=== PATIENT | female | born 1945 | race Hispanic/Latino ===

== ENCOUNTER 2018-02-02 20:25 | Emergency (ER) | payer SELFPAY ==
[2018-02-02 20:29] VITALS: BMI 32.2
[2018-02-02] MEDS ORDERED: Albuterol-Ipratrop 3 mg / 0.5 (3 ml) UD IH STA ×2 (21:52→21:53)
--- NOTE | 2018-02-02 21:55 | ED PDOC ---
Arrival/HPI - General Historian: Patient, Family - History of Present Illness Time/Duration: < week Symptom Onset: Gradual Symptom Course: Unchanged, Worsening Activities at Onset: Rest <Lior Velazco - Last Filed: 02/03/18 04:10> <Hussain Salvador - Last Filed: 02/03/18 04:20> - General Chief Complaint: Lower Extremity Problem/Injury Time Seen by Provider: 02/02/18 20:32 - History of Present Illness Narrative History of Present Illness (Text): 02/02/18 21:52 Ms. Valdes is a 72 year old female with PMH of pulmonary fibrosis (unknown etiology), CKD, and hypothyroidism who presents to ED with worsening b/l leg swelling. She states that it has been going on for several years and she normally takes lasix for it. But the swelling has worsened over the past week. She has also had intermittent SOB with exertion worsening over the past week. Her family states that she moved here recently from [place]. She has a surgical history of thyroid surgery, lung surgery (family is not sure which type), and hysterectomy. She denies tobacco, alcohol, or drug use. She denies fever, chills , CP, nausea/vomiting/diarrhea, numbness/tingling in extremities or changes in sensation in the LE. (Lior Velazco) Past Medical History - Provider Review Nursing Documentation Reviewed: Yes - Travel History Have you recently traveled outside [place] w/in the past 3 mons?: Yes If Yes, travel location?: [place] - Cardiac Hx Cardiac Disorders: No - Pulmonary Hx Respiratory Disorders: Yes Other/Comment: PULMONARY FIBROSIS - Neurological Hx Neurological Disorder: No - HEENT Hx HEENT Disorder: No - Renal Hx Renal Disorder: Yes Other/Comment: RENAL INSUFFICIENCY - Endocrine/Metabolic Hx Endocrine Disorders: Yes Other/Comment: THYROID SURGERY - Hematological/Oncological Hx Blood Disorders: No - Integumentary Hx Dermatological Disorder: Yes Other/Comment: DRY SKIN - Musculoskeletal/Rheumatological Hx Musculoskeletal Disorders: Yes Hx Osteoporosis: Yes - Gastrointestinal Hx Gastrointestinal Disorders: Yes - Genitourinary/Gynecological Hx Genitourinary Disorders: No - Psychiatric Hx Psychophysiologic Disorder: No Hx Substance Use: No - Surgical History Hx Hysterectomy: Yes Other/Comment: LUNG, THYROID <Lior Velazco - Last Filed: 02/03/18 04:10> Family/Social History - Physician Review Nursing Documentation Reviewed: Yes Family/Social History: No Known Family HX Smoking Status: Never Smoked Hx Alcohol Use: No Hx Substance Use: No <Lior Velazco - Last Filed: 02/03/18 04:10> Allergies/Home Meds <Lior Velazco - Last Filed: 02/03/18 04:10> <Hussain Salvador - Last Filed: 02/03/18 04:20> Allergies/Adverse Reactions: Allergies No Known Allergies Allergy (Verified 02/02/18 20:51) Home Medications: Home Meds Medication Instructions Recorded Confirmed Atorvastatin [Lipitor] 20 mg PO DAILY 02/02/18 02/02/18 Calcitriol [Rocaltrol] 1 cap PO DAILY 02/02/18 02/02/18 Calcium Carbonate [Oscal] 500 mg PO DAILY 02/02/18 02/02/18 Folic Acid 0.5 mg PO DAILY 02/02/18 02/02/18 Furosemide 40 mg PO DAILY 02/02/18 02/02/18 Levothyroxine [Synthroid] 100 mcg PO DAILY 02/02/18 02/02/18 Omeprazole 20 mg PO PRN PRN 02/02/18 02/02/18 Valsartan [Diovan] 80 mg PO DAILY 02/02/18 02/02/18 amLODIPine [Norvasc] 10 mg PO DAILY 02/02/18 02/02/18 Review of Systems - Review of Systems Constitutional: absent: Weight Change, Fevers Eyes: absent: Vision Changes ENT: absent: Sore Throat, Rhinorrhea Respiratory: SOB. absent: Cough Cardiovascular: Edema, TITUS. absent: Chest Pain, Calf Pain Gastrointestinal: absent: Abdominal Pain, Diarrhea, Nausea, Vomiting Genitourinary Female: absent: Dysuria, Frequency Musculoskeletal: absent: Arthralgias, Back Pain Skin: absent: Rash, Pruritis Neurological: absent: Headache, Dizziness Endocrine: absent: Diaphoresis Psychiatric: absent: Anxiety, Depression <Lior Velazco - Last Filed: 02/03/18 04:10> - Physician Review All systems were reviewed & negative as marked: Yes <Hussain Salvador - Last Filed: 02/03/18 04:20> Physical Exam Vital Signs Reviewed: Yes Temperature: Afebrile Blood Pressure: Normal Pulse: Regular Respiratory Rate: Normal Appearance: Positive for: Non-Toxic, Comfortable Mental Status: Positive for: Alert and Oriented X 3 - Systems Exam Head: Present: Atraumatic, Normocephalic Pupils: Present: PERRL Extroacular Muscles: Present: EOMI Ears: Present: Normal Mouth: Present: Moist Mucous Membranes Pharnyx: Present: Normal. No: ERYTHEMA, EXUDATE Neck: Present: Normal Range of Motion, JVD Respiratory/Chest: Present: Wheezes (end expiratory wheezes b/l), Rhonchi ( loudest at bases) Cardiovascular: Present: Regular Rate and Rhythm, Normal S1, S2. No: Murmurs, Rub, Gallop Abdomen: No: Tenderness, Rebound, Guarding Upper Extremity: Present: Normal Inspection. No: Cyanosis, Edema Lower Extremity: Present: Edema (2+ to knees b/l), NORMAL PULSES, Normal ROM Skin: Present: Warm, Dry Psychiatric: Present: Alert, Oriented x 3 <Lior Velazco - Last Filed: 02/03/18 04:10> Vital Signs Temp Pulse Resp BP Pulse Ox 02/03/18 04:16 98.3 F 87 17 126/77 95 02/03/18 02:05 98.0 F 74 18 127/80 96 02/02/18 23:50 98.4 F 89 18 127/83 97 02/02/18 20:59 98.1 F 90 18 135/83 98 02/02/18 20:36 98 F 99 H 20 124/82 96 Medical Decision Making - Lab Interpretations I have reviewed the lab results: Yes Interpretation: Abnormal lab values (mild elevated D-dimer) - RAD Interpretation [employer]: ED Physician, Radiologist - EKG Interpretation Interpreted by ED Physician: Yes Type: 12 lead EKG Comparison: No previous EKG avail. <Lior Velazco - Last Filed: 02/03/18 04:10> <Hussain Salvador - Last Filed: 02/03/18 04:20> ED Course and Treatment: 02/03/18 03:23 -Patient re-examined, was sleeping -Patient reports her symptoms have improved -Wheezing has improved -Patient states she would rather go home at this point (Lior Velazco) Patient Seen With Resident: In agreement with resident note which contains more details about the patient. Patient was seen and evaluated with resident. Came up with plan and treatment together. 72 year old female presents complaining of bilateral leg swelling that has been going on for several years, but worsen over the past week. Patient also reports intermitted shortness of breath for the past week. Plan: -- EKG -- Labs -- Chest X-ray -- Douneb, Solu-Medrol -- Lung Perf & Vent Scan -- Urinalysis (Raswant,Hussain) - Lab Interpretations Lab Results: 02/02/18 22:40 02/02/18 22:40 Lab Results 02/02/18 23:45: D-Dimer, Quantitative 305 02/02/18 23:40: Urine Color Straw, Urine Appearance Clear, Urine pH 6.0, Ur Specific [place] <= 1.005, Urine Protein Negative, Urine Glucose (UA) Negative, Urine Ketones Negative, Urine Blood Trace-lysed H, Urine Nitrate Negative, Urine Bilirubin Negative, Urine Urobilinogen 0.2, Ur Leukocyte Esterase Negative , Urine RBC 0 - 2, Urine WBC 0 - 2, Ur Epithelial Cells 0 - 2 02/02/18 22:40: Sodium 142, Potassium 4.8, Chloride 106, Carbon Dioxide 26, Anion Gap 15, BUN 40 H, Creatinine 1.6 H, Est GFR ( Amer) 38, Est GFR ( Non-Af Amer) 32, Random Glucose 100, Calcium 9.2, Magnesium 2.2, Total Bilirubin 0.9, AST 34, ALT 41, Alkaline Phosphatase 85, Lactate Dehydrogenase 591, Total Creatine Kinase 116, Troponin I < 0.01, NT-Pro-B Natriuret Pep 277, Total Protein 7.6, Albumin 4.2, Globulin 3.4, Albumin/Globulin Ratio 1.2 02/02/18 22:40: PT 10.2, INR 0.90, APTT 30.0, D-Dimer, Quantitative Cancelled 02/02/18 22:40: WBC 4.7, RBC 4.19, Hgb 12.4, Hct 37.8, MCV 90.2, MCH 29.6, MCHC 32.8, RDW 13.3, Plt Count 175, MPV 9.8, Gran % 56.3, Lymph % (Auto) 29.3, [place] % (Auto) 8.6 H, Eos % (Auto) 5.4 H, Baso % (Auto) 0.4, Gran # 2.63, Lymph # ( Auto) 1.4, [place] # (Auto) 0.4, Eos # (Auto) 0.3, Baso # (Auto) 0.02 - RAD Interpretation Narrative RAD Interpretations (Text): 02/03/18 03:46 CXR without acute findings VQ Scan EXAM: NM Lung Perfusion and Ventilation Scan CLINICAL HISTORY: 72 years old, female; Abnormal findings; Abnormal diagnostic tests; Elevated d- dimer; Additional info: SOB elevated dimer TECHNIQUE: Nuclear Medicine ventilation and perfusion images of the lungs were obtained in multiple projections following radiopharmaceutical inhalation followed by injection of Tc99m MAA. COMPARISON: SD - CHEST PORTABLE 2018-02-02 22:13 FINDINGS: Ventilation: Unremarkable. No ventilation defects. Perfusion: Heterogeneous ventilation. There are matched areas of decreased tracer uptake on both perfusion and ventilation images. Heterogeneous perfusion. Other findings: Pharmaceutical: 33.3 mCi of technetium 99m DTPA 4.2 mCi of technetium 99m MAA were administered. Recent chest x-ray demonstrate moderate enlargement of cardiac silhouette. Central pulmonary congestion. There is elevation of right hemidiaphragm. IMPRESSION: Low probability for pulmonary embolus. (Lior Velazco) Radiology Orders: 02/02/18 21:52 CHEST PORTABLE [RAD] Stat DUPLEX LOWER EXTRM VEIN BILAT [US] Stat 02/03/18 00:16 LUNG PERF & VENT SCAN [NM] Stat - EKG Interpretation EKG Interpretation (Text): 02/03/18 04:10 Normal sinus rhythm, low voltage QRS (Lior Velazco) - Medication Orders Current Medication Orders: Discontinued Medications Albuterol/Ipratropium (Duoneb 3 Mg/0.5 Mg (3 Ml) Ud) 3 ml IH STAT STA Stop: 02/02/18 21:53 Last Admin: 02/02/18 22:23 Dose: 3 ml Albuterol/Ipratropium (Duoneb 3 Mg/0.5 Mg (3 Ml) Ud) 3 ml IH STAT STA Stop: 02/02/18 21:54 Last Admin: 02/02/18 22:25 Dose: 3 ml Methylprednisolone (Solu-Medrol) 125 mg IVP STAT STA Stop: 02/02/18 21:53 Last Admin: 02/02/18 22:25 Dose: 125 mg IVP Administration Document 02/02/18 22:25 [place] (Rec: 02/02/18 22:25 LA [id number]) Charges for Administration # of IVP Administrations 1 <Lior Velazco - Last Filed: 02/03/18 04:10> - PA / TETRYL DISSOLVER OPERATOR / Resident Statement MD/ has reviewed & agrees with the documentation as recorded. MD/ has examined the patient and agrees with the treatment plan. - Scribe Statement The provider has reviewed the documentation as recorded by the Scribe <Hussain Salvador - Last Filed: 02/03/18 04:20> - Scribe Statement Rios Burnham Provider Scribe Attestation: All medical record entries made by the Scribe were at my direction and personally dictated by me. I have reviewed the chart and agree that the record accurately reflects my personal performance of the history, physical exam, medical decision making, and the department course for this patient. I have also personally directed, reviewed, and agree with the discharge instructions and disposition. (Hussain Salvador) Disposition/Present on Arrival - Present on Arrival Any Indicators Present on Arrival: No History of DVT/PE: No History of Uncontrolled Diabetes: No Urinary Catheter: No History of Decub. Ulcer: No History Surgical Site Infection Following: None - Disposition Have Diagnosis and Disposition been Completed?: Yes Disposition Time: 03:24 Patient Plan: Discharge <Lior Velazco - Last Filed: 02/03/18 04:10> <Hussain Salvador - Last Filed: 02/03/18 04:20> - Disposition Diagnosis: Pulmonary fibrosis, Dyspnea, Leg swelling Disposition: HOME/ ROUTINE Patient Problems: Current Active Problems Problem Status Onset Pulmonary fibrosis Acute Dyspnea Acute Leg swelling Acute Condition: FAIR Discharge Instructions (ExitCare): Shortness of Breath (Dyspnea) (DC), Interstitial Lung Disease Print Language: MAORI Prescriptions: Albuterol 0.083% [Albuterol 0.083% Inhal Kavita (2.5 mg/3 ml) UD] 2.5 mg IH Q4H PRN #20 neb PRN Reason: Wheezing Mask, Face [Nebulizer Aerosol Mask Adult] 1 dev XX PRN PRN #1 dev PRN Reason: Wheezing Nebulizer [Aeroeclipse II] 1 each MC Q4H PRN #1 each PRN Reason: Wheezing Prednisone 50 mg PO DAILY 5 Days #5 tablet Referrals: [email or web address], [Primary Care Provider] - Follow up with primary Forms: [employer] ([place]ish)
[2018-02-02 23:02] LABS: INR 0.9; PROTHROMBIN TIME 10.2 SECONDS (9.4-12.5)
[2018-02-02 23:07] LABS: ALB/GLOB RATIO 1.2 (1.1-1.8); ALBUMIN 4.2 g/dL (3.0-4.8); CALCIUM 9.2 mg/dL (8.4-10.5); GFR AFRICAN-AMERICAN 38; GFR NON-AFRICAN AMERICAN 32
[2018-02-02 23:08] LABS: BASO # 0.02 K/mm3 (0.0-2.0); BASO % 0.4 % (0.0-3.0); EOS # 0.3 (0.0-0.7); EOS % 5.4 % (1.5-5.0); GRAN # 2.63 (1.4-6.5); GRAN % 56.3 % (50.0-68.0); HEMOGLOBIN 12.4 g/dL (12.0-16.0); LYMPH # 1.4 (1.2-3.4); LYMPH % 29.3 % (22.0-35.0); MEAN CELL VOLUME 90.2 fl (80.0-105.0); MEAN CORPUSCULAR HEMOGLOBIN 29.6 pg (25.0-35.0); MEAN CORPUSCULAR HGB CONC 32.8 g/dl (31.0-37.0); MEAN PLATELET VOLUME 9.8 fl (7.0-11.0); MONO # 0.4 (0.1-0.6); MONO % 8.6 % (1.0-6.0); RBC 4.19 10^6/uL (3.5-6.1); RED CELL DISTRIBUTION WIDTH 13.3 % (11.5-14.5); WHITE BLOOD COUNT 4.7 10^3/ul (4.5-11.0)
[2018-02-02 23:15] LABS: ALT/SGPT 41 U/L (7-56); AST/SGOT 34 U/L (14-36); BLOOD UREA NITROGEN 40 mg/dL (7-21)
[2018-02-02 23:18] LABS: B-TYPE NATRIURETIC PEPTIDE 277 pg/mL (0-450); TROPONIN I < 0.01 ng/mL
[2018-02-02 23:48] LABS: URINE BILIRUBIN NEGATIVE (NEGATIVE); URINE BLOOD TRACE-LYSED (NEGATIVE); URINE GLUCOSE (UA) NEGATIVE (NEGATIVE); URINE LEUKOCYTE ESTERASE NEGATIVE Leu/uL (NEGATIVE); URINE PROTEIN NEGATIVE mg/dL (<30 mg/dL); URINE UROBILINOGEN 0.2 E.U./dL (<1 E.U./dL)
[2018-02-02 23:52] LABS: URINE APPEARANCE CLEAR (CLEAR); URINE COLOR STRAW (YELLOW)
[2018-02-03 00:03] LABS: URINE EPITHELIAL CELLS 0 - 2 /hpf (0-5); URINE RBC 0 - 2 /hpf (0-2); URINE WBC 0 - 2 /hpf (0-6)
[2018-02-03 04:16] VITALS: BP 126/77; PULSE 87; RESP 17; TEMP 98.3; O2SAT 95
--- NOTE | 2018-02-03 08:42 | RAD ---
Date of service: 02/02/2018 HISTORY: sob COMPARISON: No prior. FINDINGS: LUNGS: The lungs are well inflated. There is linear atelectasis/scarring in the right mid lung. No focal consolidation. PLEURA: No significant pleural effusion identified, no pneumothorax apparent. CARDIOVASCULAR: There is mild cardiomegaly. OSSEOUS STRUCTURES: No significant abnormalities. VISUALIZED UPPER ABDOMEN: Normal. OTHER FINDINGS: There is elevation of the right hemidiaphragm. IMPRESSION: No active pulmonary disease.
--- NOTE | 2018-02-03 09:53 | US ---
HISTORY: Leg pain and swelling. Evaluate for DVT PHYSICIAN(S): Hipolito Velazquez MD. TECHNIQUE: Duplex sonography and color-flow Doppler with graded compression were used to evaluate the deep venous systems of both lower extremities. FINDINGS: The visualized deep venous systems of both lower extremities are sonographically normal and compressible. Normal wave forms and augmentation are seen. There is no sonographic evidence for deep venous thrombosis in the visualized segments of both lower extremities. IMPRESSION: No sonographic evidence for deep venous thrombosis in the visualized segments of both lower extremities.
--- NOTE | 2018-02-03 13:24 | NM ---
Date of service: 02/03/2018 COMPARISON: TECHNIQUE: 33.3 mCi technetium 99-m DTPA aerosol. 4.2 mCI technetium 99-m MAA administered intravenously. FINDINGS: VENTILATION COMPONENT: Normal. PERFUSION COMPONENT: There are matched areas of decreased uptake in both perfusion and ventilation images. The report concurs with the preliminary [facility] report IMPRESSION: Lowprobability ventilation perfusion scan for pulmonary embolism.
--- NOTE | 2018-02-03 22:41 | CARD ---
APPROVED REPORT Date of service: 02/03/2018 EKG Measurement Heart [id number] NM [id number] <Conclusion> Normal sinus rhythm Low voltage QRS Borderline ECG
== END 2018-02-03 04:22 | disposition home or self-care (01) ==
LOC: ED 20:25
DX: J84.10 Pulmonary fibrosis, unspecified (principal); M79.89 Other specified soft tissue disorders; R06.00 Dyspnea, unspecified; N18.9 Chronic kidney disease, unspecified; E03.9 Hypothyroidism, unspecified
CPT/HCPCS: 71045; 78582; 80053; 81001; 82550; 83615; 83735; 83880; 84484; 85025; 85378; 85610; 85730; 93005; 93970; 96374; 99285; J2930